=== PATIENT | female | born 1960 | race Caucasian/White ===

== ENCOUNTER → 2016-10-25 | Outpatient (CLI) | payer OTHER ==
[~2016-10-25] MED LIST: ASPCH81X PO; GADAVIST IV PRN; LEVO1TAB PO; MULT-506 PO; PRLSR20 PO
--- NOTE | 2016-10-26 14:53 | MAMMOGRAPHY REPORT ---
BREAST MRI OF BOTH BREASTS : 10/25/2016 CLINICAL HISTORY: 56 year old woman presents for screening breast MRI. BRCA posotive. COMPARISON: Comparison is made to exams dated: 01/27/2016 mammogram, 05/29/2015 breast MRI, 09/11/2014 mammogram, 08/27/2013 mammogram, 10/01/2012 localization, and 10/01/2012 specimen - [facility]. TECHNIQUE: Using a 1.5 Mary magnet and dedicated breast coil, multisequence axial images were obtai junior through the breasts. After uneventful IV administration of 8 mL of Gadavist, dynamic multiphase contrast-enhanced axial images, and sagittal postcontrast were obtained. Temporal subtraction axia l images and 3-D MIP images are provided. Everything was then reviewed on a 3-D workstation, [employer]. FINDINGS: There is mild background parenchymal enhancement, with scattered enhancing round and oval foci throughout the breasts, similar in number and distribution comparing to the prior MRI dated . There is susceptibility artifact from surgical clips in the anterior subareolar right mike st, at the site of prior excisional biopsy. There is no new suspicious enhancing mass, non-mass enh ancement, focal area of architectural distortion or suspicious kinetics. No focal skin thickening o r nipple retraction. No suspicious axillary lymphadenopathy. IMPRESSION: ACR BI-RADS CATEGORY 2: BENIGN No MRI evidence of malignancy in the breasts. Recommend continuation of annual screening mammograph y schedule an screening breast MRI. The patient will receive written notification of the results. Lexy Guzman M.D. ay/:10/25/2016 22:13:11 Plastics Spreading Machine Operator: engine assembler, [facility] letter sent: Normal 1/2 BI-RADS Code: ACR BI-RADS Category 2: Benign
== END | disposition home or self-care (01) ==
LOC: C.MRI 06:42
PROVIDERS: ATTEND Physician Assistant
DX: Z15.01 Genetic susceptibility to malignant neoplasm of breast (principal); Z15.02 Genetic susceptibility to malignant neoplasm of ovary

== ENCOUNTER → 2017-04-28 | Outpatient (CLI) | payer OTHER ==
[~2017-04-28] MED LIST changes: -GADAVIST IV PRN
--- NOTE | 2017-05-01 14:46 | MAMMOGRAPHY REPORT ---
BILATERAL DIGITAL SCREENING MAMMOGRAM TOMOSYNTHESIS WITH CAD: 04/28/2017 CLINICAL HISTORY: Routine screening. TECHNIQUE: Breast tomosynthesis in addition to standard 2D mammography was performed. Current study was also evaluated with a Computer Aided Detection (CAD) system. COMPARISON: Comparison is made to exams dated: 01/27/2016 mammogram, 09/11/2014 mammogram, 08/27/2013 ma mmogram, 08/24/2012 mammogram, 04/18/2011 mammogram, and 03/10/2010 mammogram - [facility] nter. BREAST COMPOSITION: The tissue of both breasts is heterogeneously dense, which may obscure small mas ses. FINDINGS: No suspicious masses, calcifications, or areas of architectural distortion are noted in ei ther breast. There has been no significant interval change compared to prior exams. There are stable postsurgical changes in the right subareolar breast. IMPRESSION: ACR BI-RADS CATEGORY 2: BENIGN There is no mammographic evidence of malignancy. A 1 year screening mammogram is recommended. Also r ecommend continuation with anal screening breast MRI, due October 2017. The patient will receive written notification of the results. Approximately 10% of breast cancers are not detected with mammography. A negative mammographic report should not delay biopsy if a clinically suggestive mass is present. Leatha Lawson M.D. ah/:04/28/2017 15:54:17 Food And Beverage Attendant: Huber ZAMAN(R)(M), [facility] letter sent: Normal 1/2 BI-RADS Code: ACR BI-RADS Category 2: Benign
== END | disposition home or self-care (01) ==
LOC: C.MAMM 12:17
PROVIDERS: ATTEND Obstetrics & Gynecology Gynecologic Oncology
DX: Z12.31 Encounter for screening mammogram for malignant neoplasm of breast (principal)

== ENCOUNTER 2021-03-02 17:44 | Observation (INO) ==
[2021-03-02] MEDS ORDERED: SODIUM CHLORIDE 0.9% 500 ML IV STA (18:09)
[2021-03-02 18:22] LABS: Basophils # (auto) 0.02 K/uL (0-0.2); Basophils % (auto) 0.2 %; Eosinophils # (auto) 0.26 K/uL (0-0.5); Eosinophils % (auto) 2.4 %; Hematocrit (blood only) 40.6 % (37-47); Hemoglobin 13.6 g/dL (12.0-16.0); Immature Granulocytes # (auto) 0.03 K/uL (0.00-0.02); Immature Granulocytes % (auto) 0.3 %; Lymphocytes # (auto) 2.02 K/uL (1.2-3.4); Lymphocytes % (auto) 18.3 %; Mean Corpuscular Hemoglobin 31.2 pg (25-34); Mean Corpuscular Hgb Conc 33.5 g/dL (32-36); Mean Corpuscular Volume 93.1 fL (80-100); Mean Platelet Volume 10.6 fL (7.4-10.4); Monocytes # (auto) 0.92 K/uL (0.11-0.59); Monocytes % (auto) 8.3 %; Neutrophils # (auto) 7.81 K/uL (1.4-6.5); Neutrophils % (auto) 70.5 %; Platelet Count 282 K/uL (130-400); RDW Coefficient of Variation 13.3 % (11.5-14.5); RDW Standard Deviation 45.4 fL (36.4-46.3); Red Blood Count 4.36 M/uL (4.2-5.4); White Blood Count 11.06 K/uL (4.8-10.8)
[2021-03-02 18:31] LABS: Partial Thromboplastin Time 26.6 Seconds (21.0-31.0)
[2021-03-02 19:05] LABS: Alanine Aminotransferase 47 U/L (12-78); Albumin Level 3.5 gm/dl (3.4-5.0); Aspartate Aminotransferase 28 U/L (15-37); Blood Urea Nitrogen 10 mg/dl (7-18); Calcium 9.4 mg/dl (8.5-10.1); Carbon Dioxide 26 mmol/L (21-32); Chloride 102 mmol/L (98-107); Creatinine Clr Calc Pharmacy 77.4 ml/min; Est GFR (African American) 92.2 ml/min; Est GFR (Non-African American) 79.6 ml/min; Glucose 256 mg/dl (70-99); Lipase 901 U/L (73-393); Potassium 3.7 mmol/L (3.5-5.1); Sodium 136 mmol/L (136-145)
[2021-03-02 19:10] LABS: Albumin Globulin Ratio 0.8 (0.9-2); Alkaline Phosphatase 98 U/L (45-117); Bilirubin,Total 0.5 mg/dl (0.2-1); Globulin 4.4 gm/dl (2.5-4.0); Total Protein 7.9 gm/dl (6.4-8.2); Troponin I < 0.015 ng/ml (0-0.045)
[2021-03-02] MEDS ORDERED: SODIUM CHLORIDE 0.9% 1000ML 1,000 ML IV ONE (19:26)
[2021-03-02] MEDS ORDERED: ONDANSETRON INJ 2 MG/ML 2 ML VIAL IV STA (19:26)
[2021-03-02] MEDS ORDERED: FAMOTIDINE 20MG IV PUSH 20 MG/5 ML SYR IV STA (19:26)
[2021-03-02] MEDS ORDERED: MoRPHine SULFATE 4 MG/ML 1 ML CARP\\VIAL IV PRN ×2 (19:28→23:34)
--- NOTE | 2021-03-02 19:49 | XRay Report ---
XR chest 1V portable CLINICAL HISTORY: Chest Pain COMPARISON STUDY: Chest radiograph October 10, 2014. Chest CT October 22, 2014. FINDINGS: Lung volumes are normal. Lungs are clear. There is no pneumothorax or pleural effusion. Car diac size is stable. Mediastinal contours are normal. There is no evidence for pulmonary edema. IMPRESSION: No acute cardiopulmonary findings. ACT 112: Negative or not required by law. Electronically signed by: Loy Pineda M.D. 03/02/2021 7:48 PM
[2021-03-02] MEDS ORDERED: OPTIRAY 320 125ml IV ONE (19:58)
--- NOTE | 2021-03-02 20:07 | Emergency Department Note ---
Impression & Plan Acute pancreatitis, Chest pain, Abdominal pain, epigastric ED Provider Note NAME: PRABHJOT TAYLOR AGE: 60 SEX: F : 1960 ARRIVES VIA: Walk-In INFORMANT: Patient, ED PROVIDER(S): Aric Fall DO CHIEF COMPLAINT: Chest pain HPI: The patient is a 60-year-old female who presented to the emergency department by triage for an evaluation of chest pain. The patient states that she was having chest pain over the last 3 to 4 days. She called her primary care physician today to be seen and was referred to the emergency department for further evaluation. The patient states that she has epigastric and upper chest pain. She also notices pain in the lower abdomen as well. She states that she is recently been diagnosed with hypertension and was started on an JAMAAL inhibitor. She does not drink alcohol. She notices no hematemesis or black stools. The patient states that the pain is constant. The pain is worsened with exertion. She does not notice any worsening with food. The patient has been compliant with all of her outpatient medications. The patient denies having any lower extremity swelling or pain. The patient states that she has a port site in her chest that sometimes hurts like this. 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 This is why she had a port placed. ROS: See above HPI for pertinent positives & negatives. A total of 10 systems reviewed and were otherwise negative. PAST MEDICAL HISTORY: See Below PAST SURGICAL HISTORY: See Below FAMILY HISTORY: See Below SOCIAL HISTORY: See Below HOME MEDICATIONS: See Below ALLERGIES: See Below VITALS: See Below PHYSICAL EXAMINATION: GENERAL: Patient is awake alert in no acute distress patient is resting comfortably and showing no signs of anxiety EYES: The conjunctivae are clear. The pupils are round and reactive. EARS, NOSE, MOUTH AND THROAT: The nose is without any evidence of any deformity. Mucous membranes are moist. Tongue is midline. NECK: The neck is nontender and supple. RESPIRATORY: Normal respiratory effort is noted there is no evidence of wheezing rhonchi or rales CARDIOVASCULAR: Regular rate and rhythm noted there no murmurs rubs or gallops normal S1 normal S2. GASTROINTESTINAL: The abdomen is soft and mildly distended. There is diffuse tenderness to patient. There is no guarding or rigidity. MUSCULOSKELETAL/EXTREMITIES: There is no evidence of gross deformity full range of motion is noted in the hips and shoulders. SKIN: There is no obvious evidence of any rash. There are no petechiae, pallor or cyanosis noted. NEUROLOGIC: Patient is awake alert and oriented x3 strength is symmetric patellar reflexes are 2+ bilaterally MEDICAL DECISION MAKING: The patient is a 60-year-old female who presented to the emergency department for an evaluation of chest pain and epigastric pain. The patient's cardiac work-up did not show any acute ischemic changes on EKG and her troponin was negative. I discussed the patient's laboratory and radiographic studies with her. She was found to have an elevation in her lipase. She also had chest pain and a history of cancer in the past. For this reason CT of the chest abdomen and pelvis were obtained. I discussed the findings with the patient. She was found to have signs of pancreatitis on CT as well. The patient was feeling somewhat improved on reevaluation. She was treated with pain medication in the emergency department. I discussed the patient's laboratory and radiographic studies with the on-call [facility]. They have agreed to evaluate the patient in the emergency department for further management and disposition. Triage Nursing notes reviewed. Prior medical records reviewed Vital Signs: reviewed and remarkable for no significant abnormalities Differential diagnosis: Cardiac ischemia, aortic dissection, pulmonary embolism, pneumothorax, pneumonia, pericarditis, myocarditis, esophageal rupture, GERD, cholecystitis, pancreatitis, musculoskeletal, as well as other pathologies. ER treatment provided: See below Diagnostics interpreted by me: ECG: EKG was obtained in the emergency department. My interpretation is normal sinus rhythm at 65 bpm. There is no ectopy. There was no acute ST segment abnormalities noted. This was compared to a tracing from October 222014. No significant changes were noted. Cardiac Monitoring: An order was placed for continuous cardiac monitoring. The monitor shows a rate of 60 bpm with sinus rhythm. Laboratory studies: As stated above and show below. Imaging studies: See below Consultation(s): I discussed this case with Dr. Wesley who is on-call for the [facility] group. He will evaluate the patient in the emergency department for further management and disposition. Past Med/Surg History Medical History (Updated 03/02/21 @ 22:06 by Aric Fall DO) Hypothyroidism Surgical History (Updated 03/02/21 @ 20:03 by Aric Fall DO) S/P appendectomy (09/10/11) S/P tubal ligation (09/10/11) Social History (System 11/26/19 @ 14:30 by Cathy Canales) Smoking Status: Never smoker Feels Safe at Home: Yes Allergies Allergies Allergy/AdvReac Type Severity Reaction Status Date / Time prochlorperazine Allergy Severe CAUSED Verified 03/02/21 19:49 CODE BLUE promethazine Allergy Severe MADE Verified 03/02/21 19:49 NAUSEA WORSE lorazepam Allergy Intermediate hallucinati Verified 03/02/21 19:49 ons metoclopramide Allergy Mild Unknown Verified 03/02/21 19:49 codeine Allergy Unknown Unknown Verified 03/02/21 19:49 Phenothiazines AdvReac Intermediate dystonic Verified 03/02/21 19:49 reaction meperidine AdvReac Mild GI SYMPTOMS Verified 03/02/21 19:49 Phosphoric Acid Allergy Unknown PHOSPHORATED Uncoded 03/02/21 19:49 CARBOHYDRATE Home Meds Home Medications Medication Instructions Recorded Confirmed aspirin 81 mg tablet,delayed 81 mg PO WK 03/02/21 03/02/21 release (Aspirin Low Dose) levothyroxine 150 mcg tablet 150 mcg PO DAILYBB 03/02/21 03/02/21 lisinopril 2.5 mg tablet 2.5 mg PO HS 03/02/21 03/02/21 multivitamin (Multiple Vitamins) 1 tab PO QAM 03/02/21 03/02/21 Results & Data (ED) Vital Signs Vital Signs - 24 hr 03/02/21 17:49 03/02/21 19:35 03/02/21 20:34 Temperature 37.2 C Temperature Source Temporal Artery Scan Pulse Rate 76 Pulse Rate [Apical] 58 L 58 L Pulse Rhythm Regular Pulse Strength Normal Respiratory Rate 18 18 18 Respiratory Effort / Characteristics Non-Labored Non-Labored Respiratory Depth Normal Normal Respiratory Pattern Regular Blood Pressure 197/99 H Blood Pressure [Right Arm] 188/114 H 175/86 H Blood Pressure Mean 131 Blood Pressure Mean [Right Arm] 138 115 Blood Pressure Position Sitting Pulse Oximetry 96 100 97 Oxygen Delivery Method Room Air Room Air Room Air Sepsis Recent Fever Within 48 Hours No Sepsis New/Unexplained Change in Mental Status N/A Sepsis Action Taken by Nursing No Action Required 03/02/21 21:00 Temperature Temperature Source Pulse Rate 60 Pulse Rate [Apical] Pulse Rhythm Pulse Strength Respiratory Rate 18 Respiratory Effort / Characteristics Respiratory Depth Respiratory Pattern Blood Pressure 154/79 H Blood Pressure [Right Arm] Blood Pressure Mean 104 Blood Pressure Mean [Right Arm] Blood Pressure Position Pulse Oximetry 94 Oxygen Delivery Method Sepsis Recent Fever Within 48 Hours Sepsis New/Unexplained Change in Mental Status Sepsis Action Taken by Intermediate Medications Current Medication List: was personally reviewed by me Laboratory Data Attestation: I reviewed the patient's lab results. Result diagrams: 03/02/21 18:14 03/02/21 18:14 Lab Results 03/02/21 03/02/21 03/02/21 Range/Units 18:14 18:14 18:14 WBC 11.06 H (4.8-10.8) K/uL RBC 4.36 (4.2-5.4) M/uL Hgb 13.6 (12.0-16.0) g/dL Hct 40.6 (37-47) % MCV 93.1 (80-100) fL MCH 31.2 (25-34) pg MCHC 33.5 (32-36) g/dL RDW Std Deviation 45.4 (36.4-46.3) fL RDW Coeff of Supa 13.3 (11.5-14.5) % Plt Count 282 (130-400) K/uL MPV 10.6 H (7.4-10.4) fL Immature Gran % (Auto) 0.3 % Neut % (Auto) 70.5 % Lymph % (Auto) 18.3 % Beckham % (Auto) 8.3 % Eos % (Auto) 2.4 % Baso % (Auto) 0.2 % Neut # (Auto) 7.81 H (1.4-6.5) K/uL Lymph # (Auto) 2.02 (1.2-3.4) K/uL Beckham # (Auto) 0.92 H (0.11-0.59) K/uL Eos # (Auto) 0.26 (0-0.5) K/uL Baso # (Auto) 0.02 (0-0.2) K/uL Immature Gran # (Auto) 0.03 H (0.00-0.02) K/uL APTT 26.6 (21.0-31.0) Seconds PTT Ratio 1.0 Sodium 136 (136-145) mmol/L Potassium 3.7 (3.5-5.1) mmol/L Chloride 102 (98-107) mmol/L Carbon Dioxide 26 (21-32) mmol/L Anion Gap 8.0 (3-11) BUN 10 (7-18) mg/dl Creatinine 0.80 (0.6-1.2) mg/dl Est Cr Clr Drug Dosing 77.4 ml/min Est GFR ( Amer) 92.2 ml/min Est GFR (Non-Af Amer) 79.6 ml/min BUN/Creatinine Ratio 13.0 (10-20) Glucose 256 H (70-99) mg/dl Calcium 9.4 (8.5-10.1) mg/dl Total Bilirubin 0.5 (0.2-1) mg/dl AST 28 (15-37) U/L ALT 47 (12-78) U/L Alkaline Phosphatase 98 (45-117) U/L Troponin I < 0.015 (0-0.045) ng/ml Total Protein 7.9 (6.4-8.2) gm/dl Albumin 3.5 (3.4-5.0) gm/dl Globulin 4.4 H (2.5-4.0) gm/dl Albumin/Globulin Ratio 0.8 L (0.9-2) Lipase 901 H (73-393) U/L COVID-19 Eval Order SARS-CoV-2 (PCR) (Negative) 03/02/21 03/02/21 Range/Units 19:47 19:47 WBC (4.8-10.8) K/uL RBC (4.2-5.4) M/uL Hgb (12.0-16.0) g/dL Hct (37-47) % MCV (80-100) fL MCH (25-34) pg MCHC (32-36) g/dL RDW Std Deviation (36.4-46.3) fL RDW Coeff of Supa (11.5-14.5) % Plt Count (130-400) K/uL MPV (7.4-10.4) fL Immature Gran % (Auto) % Neut % (Auto) % Lymph % (Auto) % Beckham % (Auto) % Eos % (Auto) % Baso % (Auto) % Neut # (Auto) (1.4-6.5) K/uL Lymph # (Auto) (1.2-3.4) K/uL Beckham # (Auto) (0.11-0.59) K/uL Eos # (Auto) (0-0.5) K/uL Baso # (Auto) (0-0.2) K/uL Immature Gran # (Auto) (0.00-0.02) K/uL APTT (21.0-31.0) Seconds PTT Ratio Sodium (136-145) mmol/L Potassium (3.5-5.1) mmol/L Chloride (98-107) mmol/L Carbon Dioxide (21-32) mmol/L Anion Gap (3-11) BUN (7-18) mg/dl Creatinine (0.6-1.2) mg/dl Est Cr Clr Drug Dosing ml/min Est GFR ( Amer) ml/min Est GFR (Non-Af Amer) ml/min BUN/Creatinine Ratio (10-20) Glucose (70-99) mg/dl Calcium (8.5-10.1) mg/dl Total Bilirubin (0.2-1) mg/dl AST (15-37) U/L ALT (12-78) U/L Alkaline Phosphatase (45-117) U/L Troponin I (0-0.045) ng/ml Total Protein (6.4-8.2) gm/dl Albumin (3.4-5.0) gm/dl Globulin (2.5-4.0) gm/dl Albumin/Globulin Ratio (0.9-2) Lipase (73-393) U/L COVID-19 Eval Order Covid19 at [facility] SARS-CoV-2 (PCR) NEGATIVE (Negative) Administered Medications Morphine Sulfate (Morphine Sulfate 4 Mg/Ml 1 Ml Carp\Vial) 4 mg IV Q30M PRN PRN Reason: Pain Stop: 03/16/21 19:27 Last Admin: 03/02/21 19:41 Dose: 4 mg Documented by: [id number] Discontinued Medications Sodium Chloride (Nss) 500 mls @ 999 mls/hr IV .Q31M STA Stop: 03/02/21 18:39 Last Infusion: 03/02/21 19:00 Dose: 0 mls/hr Documented by: [id number] Admin: 03/02/21 18:20 Dose: 999 mls/hr Documented by: [id number] Sodium Chloride (Nss 1000ml) 1,000 mls @ 999 mls/hr IV .Q1H1M ONE Stop: 03/02/21 20:26 Last Infusion: 03/02/21 20:40 Dose: 0 mls/hr Documented by: [id number] Admin: 03/02/21 19:40 Dose: 999 mls/hr Documented by: [id number] Famotidine (Pepcid 20mg Iv Push) 20 mg in 5 mls @ 2.5 mls/min IV NOW STA Stop: 03/02/21 19:27 Last Admin: 03/02/21 19:41 Dose: 2.5 mls/min Documented by: [id number] Ioversol (Optiray 320 125ml) 118 ml IV ONCE ONE Stop: 03/02/21 19:59 Last Admin: 03/02/21 19:59 Dose: 118 ml Documented by: [id number] Ondansetron HCl (Ondansetron Inj 2 Mg/Ml 2 Ml Vial) 4 mg IV NOW STA Stop: 03/02/21 19:27 Last Admin: 03/02/21 19:41 Dose: 4 mg Documented by: [id number] Imaging Data Radiologist's Impression: Chest X-Ray 03/02/21 18:09 XR chest 1V portable CLINICAL HISTORY: Chest Pain COMPARISON STUDY: Chest radiograph October 10, 2014. Chest CT October 22, 2014. FINDINGS: Lung volumes are normal. Lungs are clear. There is no pneumothorax or pleural effusion. Cardiac size is stable. Mediastinal contours are normal. There is no evidence for pulmonary edema. IMPRESSION: No acute cardiopulmonary findings. ACT 112: Negative or not required by law. Electronically signed by: Loy Pineda M.D. 03/02/2021 7:48 PM Abdomen/Pelvis CT 03/02/21 19:26 CT OF THE ABDOMEN AND PELVIS WITH CONTRAST CLINICAL HISTORY: Pancreatitis. COMPARISON STUDY: CT of the abdomen and pelvis December 28, 2014. TECHNIQUE: Following IV administration of 118 mL of Optiray, axial images of the abdomen and pelvis were obtained from the lung bases to the proximal femurs. Images were reviewed in the axial, sagittal, and coronal planes. IV contrast was administered without complication. Automated exposure control was utilized for the study. A dose lowering technique was utilized adhering to the principles of ALARA. FINDINGS: A hiatal hernia is noted. No pneumatosis, free air or portal venous gas is present. There is no biliary ductal dilatation status post cholecystectomy. The pancreatic head and uncinate process are edematous. There is mild peripancreatic stranding. There is no pancreatic ductal dilatation. There is no evidence for necrosis. No peripancreatic fluid collection is pr esent. There is possible hepatic steatosis. The spleen, adrenal glands and kidneys are unremarkable. Subcentimeter right renal lesion favors a cyst. There is no evidence for a bowel obstruction. Caliber and wall thickness of small and large bowel are normal. Major vasculature is patent. There is no lymphadenopathy. A 1.5 cm round density anterior to the right iliac vessels has decreased in size since CT of December 28, 2014. This is benign. IMPRESSION: 1. Edematous pancreatic head and uncinate process with mild peripancreatic stranding. The findings represent acute pancreatitis. No evidence for necrosis. No peripancreatic fluid collection. Follow-up CT in 3 months to ensure resolution is recommended. 2. No biliary ductal dilatation status post cholecystectomy. 3. Small hiatal hernia. ACT 112: Negative or not required by law. Electronically signed by: Loy Pineda M.D. 03/02/2021 8:38 PM Chest CTA 03/02/21 19:26 CT ANGIOGRAPHY OF THE CHEST, PULMONARY EMBOLUS PROTOCOL CLINICAL HISTORY: Chest pain. Nausea. Evaluate for pulmonary embolus. COMPARISON STUDY: Chest CT October 22, 2014. Chest radiograph performed earlier today. TECHNIQUE: Following IV administration of 118 mL of Optiray, helical axial images of the chest were obtained utilizing the pulmonary embolus protocol. Maximal intensity projections and sagittal and coronal reformats were viewed on an independent 3D workstation. IV contrast was administered without complication. Automated exposure control was utilized for the study. A dose lowering technique was utilized adhering to the principles of ALARA. CT DOSE: 974.61 mGy.cm FINDINGS: No pulmonary emboli are identified. There is no thoracic aortic dissection. No pericardial effusion is noted. There is a small hiatal hernia. Prominent upper mediastinal lymph nodes are unchanged since prior exam. These are likely benign. There is no pneumothorax or pleural effusion. There is no consolidation to suggest pneumonia. Mild groundglass opacities favor atelectasis. No acute fracture or suspicious lesion is identified within visualized portions of the bony thorax. The abdomen and pelvis will be reported separately. IMPRESSION: 1. No pulmonary emboli identified. 2. No acute process within the chest. 3. Small hiatal hernia. ACT 112: Negative or not required by law. Electronically signed by: Loy Pineda M.D. 03/02/2021 8:26 PM Discharge Plan Visit Data Chief Complaint: Chest Pain Stated Complaint: CHEST PAIN,NAUSEA,DIZZINESS-REF ED Provider: Aric Fall Discharge Problem: Acute pancreatitis, Chest pain, Abdominal pain, epigastric Patient Disposition: Being Evaluated by Hospitalist Forms Stand Alone Forms: My [facility] [employer] Prescriptions Prescriptions: No Action multivitamin [Multiple Vitamins] Tablet 1 tab PO QAM RF: 0 aspirin [Aspirin Low Dose] 81 mg Tablet,Delayed Release (Dr/Ec) 81 mg PO WK RF: 0 levothyroxine 150 mcg tablet 150 mcg PO DAILYBB RF: 0 lisinopril 2.5 mg tablet 2.5 mg PO HS RF: 0 Referrals Referrals: Joe Barclay, [Primary Care Provider] -
--- NOTE | 2021-03-02 20:28 | CT Scan Report ---
CT ANGIOGRAPHY OF THE CHEST, PULMONARY EMBOLUS PROTOCOL CLINICAL HISTORY: Chest pain. Nausea. Evaluate for pulmonary embolus. COMPARISON STUDY: Chest CT October 22, 2014. Chest radiograph performed earlier today. TECHNIQUE: Following IV administration of 118 mL of Optiray, helical axial images of the chest were o btained utilizing the pulmonary embolus protocol. Maximal intensity projections and sagittal and cor onal reformats were viewed on an independent 3D workstation. IV contrast was administered without co mplication. Automated exposure control was utilized for the study. A dose lowering technique was ut ilized adhering to the principles of ALARA. CT DOSE: 974.61 mGy.cm FINDINGS: No pulmonary emboli are identified. There is no thoracic aortic dissection. No pericardial effusion is noted. There is a small hiatal hernia. Prominent upper mediastinal lymph nodes are uncha nged since prior exam. These are likely benign. There is no pneumothorax or pleural effusion. There i s no consolidation to suggest pneumonia. Mild groundglass opacities favor atelectasis. No acute fract ure or suspicious lesion is identified within visualized portions of the bony thorax. The abdomen and pelvis will be reported separately. IMPRESSION: 1. No pulmonary emboli identified. 2. No acute process within the chest. 3. Small hiatal hernia. ACT 112: Negative or not required by law. Electronically signed by: Loy Pineda M.D. 03/02/2021 8:26 PM
--- NOTE | 2021-03-02 20:40 | CT Scan Report ---
CT OF THE ABDOMEN AND PELVIS WITH CONTRAST CLINICAL HISTORY: Pancreatitis. COMPARISON STUDY: CT of the abdomen and pelvis December 28, 2014. TECHNIQUE: Following IV administration of 118 mL of Optiray, axial images of the abdomen and pelvis w ere obtained from the lung bases to the proximal femurs. Images were reviewed in the axial, sagittal, and coronal planes. IV contrast was administered without complication. Automated exposure control w as utilized for the study. A dose lowering technique was utilized adhering to the principles of HAO Adkins. FINDINGS: A hiatal hernia is noted. No pneumatosis, free air or portal venous gas is present. There i s no biliary ductal dilatation status post cholecystectomy. The pancreatic head and uncinate process are edematous. There is mild peripancreatic stranding. There is no pancreatic ductal dilatation. Ther e is no evidence for necrosis. No peripancreatic fluid collection is present. There is possible hepat ic steatosis. The spleen, adrenal glands and kidneys are unremarkable. Subcentimeter right renal lesi on favors a cyst. There is no evidence for a bowel obstruction. Caliber and wall thickness of small a nd large bowel are normal. Major vasculature is patent. There is no lymphadenopathy. A 1.5 cm round d ensity anterior to the right iliac vessels has decreased in size since CT of December 28, 2014. This is b enign. IMPRESSION: 1. Edematous pancreatic head and uncinate process with mild peripancreatic stranding. The findings re present acute pancreatitis. No evidence for necrosis. No peripancreatic fluid collection. Follow-up C T in 3 months to ensure resolution is recommended. 2. No biliary ductal dilatation status post cholecystectomy. 3. Small hiatal hernia. ACT 112: Negative or not required by law. Electronically signed by: Loy Pineda M.D. 03/02/2021 8:38 PM
[2021-03-02] MEDS ORDERED: ACETAMINOPHEN 325 MG TAB PO PRN (23:34)
[2021-03-02] MEDS ORDERED: ONDANSETRON INJ 2 MG/ML 2 ML VIAL IV PRN (23:34)
[2021-03-02] MEDS ORDERED: NITROGLYCERIN SL 0.4 MG/TAB TAB SL PRN (23:34)
[2021-03-02] MEDS ORDERED: CARBOHYDRATES FOR HYPOGLYCEMIA PO PRN (23:45)
[2021-03-02] MEDS ORDERED: GLUCOSE 40% GEL 15 GM TUBE PO PRN (23:45)
[2021-03-02] MEDS ORDERED: GLUCOSE 10 TABS/TUBE PO PRN (23:45)
[2021-03-02] MEDS ORDERED: GLUCAGON FOR INJ 1 MG VIAL IM PRN (23:45)
[2021-03-02] MEDS ORDERED: DEXTROSE 50% 50 ML SYRINGE IV PRN (23:45)
--- NOTE | 2021-03-03 00:29 | History and Physical Report ---
DATE OF ADMISSION: 03/02/2021. CHIEF COMPLAINT: Chest pain and now abdominal pain. HISTORY OF PRESENT ILLNESS: This is a 60-year-old female with past medical history significant for diabetes, currently not on any medications, history of fallopian tube malignant neoplasm, history of rosacea, history of neuropathy. Presents with abdominal pain and chest pain. The patient states since Monday night, she had some abdominal discomfort and since yesterday morning, has noticed having some pain in the lower part of the chest. Then, today it started radiating into the chest and is staying in the lower part of the chest and also feeling dizzy. She had this kind of pain before and at that time it was determined it was from her A port, but it was not getting better, it was 8/10 in severity, so she came to the ER and found to be having pancreatitis with elevated lipase and also CAT scan findings. Currently, with pain medications she is feeling better. She was nauseous, but no vomiting, no diarrhea. Somewhat constipated. No blood in stools or black stools, no hematuria, no burning micturitions. No fever, no chills, no cough. Sometimes she gets feeling of tightness in the chest with pain and no headache, no blurred visions, no earache, no runny nose, no sore throat, no dysphagia. Appetite has been not great the last few days. No swelling in the legs, no rash. Currently, resting comfortably and hemodynamically stable. ALLERGIES: PROCHLORPERAZINE, PROMETHAZINE, LORAZEPAM, METOCLOPRAMIDE, CODEINE, PHENOTHIAZINES, MEPERIDINE, PHOSPHORIC ACID. PAST MEDICAL HISTORY: As mentioned above. PAST SURGICAL HISTORY: , colonoscopy, dental surgery, foot and toe surgery, hysteroscopy, endometrial ablation, tunneled catheter venous access, robotic laparoscopic removal of tube and ovary, robotic laparoscopic hysterectomy, laparoscopic cholecystectomy, ligation of the oviducts, Pap smear, appendectomy, tonsillectomy, removal of excess tissue of the abdomen, umbilical hernia repair, laparoscopy of uterus. MEDICATIONS: The patient is on aspirin 81 mg p.o. daily, levothyroxine 150 mcg p.o. daily, lisinopril 2.5 mg p.o. at bedtime, multivitamin 1 tablet p.o. a.m. FAMILY HISTORY: Significant for father had prostate cancer, [place], hypertension; mother had breast cancer; maternal grandmother had breast cancer; sister has fallopian tube cancer; second cousin has ovarian cancer. SOCIAL HISTORY: , no smoking. Alcohol occasional. No drug use. REVIEW OF SYSTEMS: As per HPI. Rest of the review of systems is negative. PHYSICAL EXAMINATION: GENERAL: The patient is of moderate build, not in acute distress. VITAL SIGNS: Temperature 37.2, pulse 63, respiratory rate 21, blood pressure 166/98, oxygen 99% on room air. HEENT: Pupils equal, round and reactive to light. Oral mucosa moist. NECK: No JVD, no neck masses. CARDIOVASCULAR: S1 and S2 heard. Regular rate and rhythm. No murmur, no gallop. RESPIRATORY: Normal AP diameter. No accessory muscle use. No wheezing, no crackles. ABDOMEN: Soft, bowel sounds present, nontender, no distention. CENTRAL NERVOUS SYSTEM: Cranial nerves II-XII grossly intact, nonfocal. EXTREMITIES: No edema, no erythema. LABORATORY DATA: WBC 11.06, hemoglobin 13.6, hematocrit 40.6, platelets 282, APTT 26.6, PTT 1. Sodium 136, potassium 3.7, chloride 102, bicarbonate 26, BUN 10, creatinine 0.8, serum glucose 256, calcium 9.4, total bilirubin 0.5, AST 28, ALT 47, alkaline phosphatase 98. Troponin I less than 0.015. Lipase is 901. SARS-CoV-2 PCR negative. IMAGING DATA: CTA of the chest, no PE, no acute process within the chest. Small hiatal hernia. CT of the abdomen and pelvis shows edematous pancreatic head and uncinate process with mild peripancreatic stranding. These findings represent acute pancreatitis. No evidence of necrosis. No peripancreatic fluid collection. Followup CT in three months to ensure resolution is recommended. No biliary ductal dilatation, status post cholecystectomies. Small hiatal hernia. Chest x-ray, no acute cardiopulmonary findings. EKG: Normal sinus rhythm, rate of 65, no acute ST changes seen. ASSESSMENT AND PLAN: This is a 60-year-old female who presents with chest pain, abdominal pain. 1. Chest pain and abdominal pain, most likely secondary to acute pancreatitis: The patient says he was started on lisinopril 3 months ago, which will be held.. History of cholecystectomy. Etiology unclear. We will start an aggressive IV fluids, saline at 200 mL per hour, IV morphine p.r.n., IV antiemetics. Keep her n.p.o. and consult GI in the a.m. for further recommendation. Monitor in the [employer] tele. 2. Questionable chest pain, most likely from pancreatitis: Initial EKG and troponin negative. Follow serial enzymes and echocardiogram. 3. Hypertension: On low-dose lisinopril, which will hold for now. 4. Hypothyroidism: Continue Synthroid. 5. History of diabetes: Currently not taking any medications. Will place on insulin sliding scale. Follow HbA1c levels. 6. 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 Status post chemo. Currently in remission. Follow up with hem/onc. 7. Deep venous thrombosis prophylaxis: Lovenox. DISPOSITION: Closely monitor in the [employer] tele. PT/OT prior to discharge. Social service to help with discharge planning. Job ID: [id number] MTDD
[2021-03-03] MEDS: LACTATED RINGER'S 1,000 ML IV SCH ×5 (00:42→19:02)
[2021-03-03] MEDS: ENOXAPARIN INJ 40 MG/0.4 ML SYR SQ SCH ×2 (01:04→20:42)
[2021-03-03] MEDS: INSULIN ASPART 100 UNITS/ML 3 ML PEN SC SCH ×5 (01:15→20:50)
[2021-03-03 05:38] LABS: Basophils # (auto) 0.02 K/uL (0-0.2); Basophils % (auto) 0.2 %; Eosinophils # (auto) 0.24 K/uL (0-0.5); Eosinophils % (auto) 2.8 %; Hematocrit (blood only) 37.2 % (37-47); Hemoglobin 11.9 g/dL (12.0-16.0); Immature Granulocytes # (auto) 0.02 K/uL (0.00-0.02); Immature Granulocytes % (auto) 0.2 %; Lymphocytes # (auto) 1.97 K/uL (1.2-3.4); Mean Corpuscular Hemoglobin 30.4 pg (25-34); Mean Corpuscular Volume 94.9 fL (80-100); Mean Platelet Volume 10.3 fL (7.4-10.4); Monocytes # (auto) 0.74 K/uL (0.11-0.59); Monocytes % (auto) 8.6 %; Neutrophils # (auto) 5.58 K/uL (1.4-6.5); Neutrophils % (auto) 65.2 %; Platelet Count 253 K/uL (130-400); RDW Coefficient of Variation 13.5 % (11.5-14.5); RDW Standard Deviation 46.8 fL (36.4-46.3); Red Blood Count 3.92 M/uL (4.2-5.4); White Blood Count 8.57 K/uL (4.8-10.8)
[2021-03-03 06:12] LABS: BUN Creatinine Ratio 10.4 (10-20); Calcium 8.8 mg/dl (8.5-10.1); Creatinine Clr Calc Pharmacy 100.5 ml/min; Est GFR (African American) 112.8 ml/min; Est GFR (Non-African American) 97.3 ml/min
[2021-03-03 07:25] LABS: Estimated Average Glucose 171 mg/dl; Hemoglobin A1C 7.6 % (4.5-5.6)
--- NOTE | 2021-03-03 08:05 | Electrocardiogram Report ---
Test Reason : Blood Pressure : / mmHG Vent. Rate : 065 BPM Atrial Rate : 065 BPM P-R Int : 146 ms QRS Dur : 072 ms QT Int : 380 ms P-R-T Axes : 049 023 033 degrees QTc Int : 395 ms Normal sinus rhythm Normal ECG When compared with ECG of 22-OCT-2014 10:58, QT has shortened Confirmed by Nemesio Handley ([id number]) on 03/03/2021 8:04:42 AM Referred By: Joe Barclay Confirmed By:Neemsio Handley
--- NOTE | 2021-03-03 08:05 | Electrocardiogram Report ---
Test Reason : Blood Pressure : / mmHG Vent. Rate : 059 BPM Atrial Rate : 059 BPM P-R Int : 150 ms QRS Dur : 074 ms QT Int : 402 ms P-R-T Axes : 058 044 032 degrees QTc Int : 397 ms Sinus bradycardia Otherwise normal ECG When compared with ECG of 02-MAR-2021 17:59, No significant change was found Confirmed by Nemesio Handley ([id number]) on 03/03/2021 8:04:53 AM Referred By: Joe Barclay Confirmed By:Nemesio Handley
--- NOTE | 2021-03-03 13:08 | Gastrointestinal Consultation ---
Date of Consultation March 03, 2021 Assessment & Plan (1) Acute pancreatitis: This is a 60-year-old female admitted with pancreatitis. Labs and imagin reviewed. She is already feeling improved with analgesia. She has not required any pain medicine since last evening. She is tolerating ice chips at present. Abdominal pain is much improved, almost gone, no nausea. Abdomen soft on exam. Etiology for pancreatitis unclear, she is status post cholecystectomy, no evidence for biliary stone, no tobacco or significant alcohol use, no history of hypertriglyceridemia perhaps medications have contributed to this, recently was started on Jardiance and lisinopril. Jardiance has been stopped. - Would advance diet to clear liquids -> low-fat diet as tolerated - Would use analgesia as needed - Would avoid ETOH - Encourage ambulation as able - Patient would benefit from outpatient EUS in 4 to 6 weeks to evaluate the pancreas for follow-up, our office will arrange this Thank you for allowing us to participate in the care of this patient. Please call with any acute changes, questions or concerns. Please see addendum below with additional recommendation from my supervising physician. Supervising Physician Co-Signing Physician Notes I have personally seen and examined the patient with Cathy Spaulding PA-C on 03/03/21. Her note reflects my exam and findings. I agree with her impression and plan. Abdominal pain improved already. No obvious cause of pancreatitis. advance diet as tolerates. Parrish Khoury M.D. History of Present Illness Reason for Consultation: pancreatitis Requesting Physician: Dr. Wesley Attending Physician: Temo Burnham MD History of Present Illness This is a 60-year-old female with PMhx DM, history of fallopian tube malignant neoplasm, admitted yesterday after presenting with epigastric and chest discomfort symptoms started over the weekend and worsen, to the point where it was painful to take a deep breath. On arrival to the ER, she was found to have elevated lipase of 900, with normal LFTs, WBC 11. CTAP suggestive of pancreatitis. Currently feeling much better after analgesia. She is even tolerating some ice chips. She has no leukocytosis or significant anemia on lab work. She is afebrile, not tachycardic She is status post cholecystectomy in 2014. She has very occasional alcohol, maybe 1 beer per month. Does not use tobacco products. Several months ago, she was started on Jardiance and lisinopril, as well as turmeric. 1 month ago she stopped Jardiance due to yeast infection; she was treated at that time with Difl ucan for 1 dose, as well as topical clotrimazole cream. No family history of pancreatitis or pancreas problems. No prior history of pancreatitis. Triglycerides were 165 in June of this year. Denies nausea vomiting, hematemesis, melena or hematochezia, no fevers or chills, chest pain or shortness of breath, jaundice, weight loss, leg edema. Allergies Allergy/AdvReac Type Severity Reaction Status Date / Time prochlorperazine Allergy Severe CAUSED Verified 03/02/21 19:49 CODE BLUE promethazine Allergy Severe MADE Verified 03/02/21 19:49 NAUSEA WORSE lorazepam Allergy Intermediate hallucinati Verified 03/02/21 19:49 ons metoclopramide Allergy Mild Unknown Verified 03/02/21 19:49 codeine Allergy Unknown Unknown Verified 03/02/21 19:49 Phenothiazines AdvReac Intermediate dystonic Verified 03/02/21 19:49 reaction meperidine AdvReac Mild GI SYMPTOMS Verified 03/02/21 19:49 Phosphoric Acid Allergy Unknown PHOSPHORATED Uncoded 03/02/21 19:49 CARBOHYDRATE Home Medications Medication Instructions Recorded Confirmed Type aspirin 81 mg tablet,delayed 81 mg PO WK 03/02/21 03/02/21 History release (Aspirin Low Dose) levothyroxine 150 mcg tablet 150 mcg PO DAILYBB 03/02/21 03/02/21 History lisinopril 2.5 mg tablet 2.5 mg PO HS 03/02/21 03/02/21 History multivitamin (Multiple Vitamins) 1 tab PO QAM 03/02/21 03/02/21 History Patient History Medical History (Updated 03/02/21 @ 22:06 by Aric Fall DO) Hypothyroidism Surgical History (Updated 03/02/21 @ 20:03 by Aric Fall DO) S/P appendectomy (09/10/11) S/P tubal ligation (09/10/11) Social History (System 11/26/19 @ 14:30 by Cathy Canales) Smoking Status: Never smoker Hx Alcohol Use: No Hx Substance Use: No Preferred Language: Nepali Communication Ability: Effective Engineering Scientist Required: No Beliefs That Will Affect Care: None Current Living Situation: Spouse Feels Safe at Home: Yes Safety Concerns: Feels Safe At This Time Assistive Devices: None Review of Systems Review of Systems: A complete review of systems was performed and negative except as noted in HPI Physical Exam Constitutional: WD/WN, vitals as above Eyes: Sclera anicteric Neck: trachea midline, no thyromegaly Respiratory: normal respiratory effort, lungs clear to auscultation Cardiovascular: RRR, no murmur, no edema Gastrointestinal (Abdomen): Bowel sounds x4 quadrants, abdomen is soft, very mild tenderness to the epigastrium, no rebound or guarding, nondistended Skin: no rashes, warm and dry Results & Data ([facility]) Vital Signs (Past 12 Hours) Vital Signs Temp Pulse Pulse Resp BP Pulse Ox 03/03/21 11:14 36.6 C 57 L 18 156/72 H 98 03/03/21 07:52 64 03/03/21 07:40 36.8 C 86 18 155/96 H 94 03/03/21 04:00 36.6 C 57 L 18 150/79 H 97 Laboratory Results 03/03/21 03/03/21 03/03/21 Range/Units 11:42 11:22 06:49 WBC (4.8-10.8) K/uL RBC (4.2-5.4) M/uL Hgb (12.0-16.0) g/dL Hct (37-47) % MCV (80-100) fL MCH (25-34) pg MCHC (32-36) g/dL RDW Std Deviation (36.4-46.3) fL RDW Coeff of Supa (11.5-14.5) % Plt Count (130-400) K/uL MPV (7.4-10.4) fL Immature Gran % (Auto) % Neut % (Auto) % Lymph % (Auto) % [place] % (Auto) % Eos % (Auto) % Baso % (Auto) % Neut # (Auto) (1.4-6.5) K/uL Lymph # (Auto) (1.2-3.4) K/uL [place] # (Auto) (0.11-0.59) K/uL Eos # (Auto) (0-0.5) K/uL Baso # (Auto) (0-0.2) K/uL Immature Gran # (Auto) (0.00-0.02) K/uL APTT (21.0-31.0) Seconds PTT Ratio Sodium (136-145) mmol/L Potassium (3.5-5.1) mmol/L Chloride (98-107) mmol/L Carbon Dioxide (21-32) mmol/L Anion Gap (3-11) BUN (7-18) mg/dl Creatinine (0.6-1.2) mg/dl Est Cr Clr Drug Dosing ml/min Est GFR ( Amer) ml/min Est GFR (Non-Af Amer) ml/min BUN/Creatinine Ratio (10-20) Glucose (70-99) mg/dl POC Glucose 127 H 164 H (70-99) mg/dl Estimat Average Glucose mg/dl Hemoglobin A1c (4.5-5.6) % Calcium (8.5-10.1) mg/dl Magnesium (1.8-2.4) mg/dl Total Bilirubin (0.2-1) mg/dl AST (15-37) U/L ALT (12-78) U/L Alkaline Phosphatase (45-117) U/L Troponin I < 0.015 (0-0.045) ng/ml Total Protein (6.4-8.2) gm/dl Albumin (3.4-5.0) gm/dl Globulin (2.5-4.0) gm/dl Albumin/Globulin Ratio (0.9-2) Lipase (73-393) U/L COVID-19 Eval Order SARS-CoV-2 (PCR) (Negative) 03/03/21 03/03/21 03/03/21 Range/Units 05:23 05:23 05:23 WBC 8.57 (4.8-10.8) K/uL RBC 3.92 L (4.2-5.4) M/uL Hgb 11.9 L (12.0-16.0) g/dL Hct 37.2 (37-47) % MCV 94.9 (80-100) fL MCH 30.4 (25-34) pg MCHC 32.0 (32-36) g/dL RDW Std Deviation 46.8 H (36.4-46.3) fL RDW Coeff of Supa 13.5 (11.5-14.5) % Plt Count 253 (130-400) K/uL MPV 10.3 (7.4-10.4) fL Immature Gran % (Auto) 0.2 % Neut % (Auto) 65.2 % Lymph % (Auto) 23.0 % [place] % (Auto) 8.6 % Eos % (Auto) 2.8 % Baso % (Auto) 0.2 % Neut # (Auto) 5.58 (1.4-6.5) K/uL Lymph # (Auto) 1.97 (1.2-3.4) K/uL [place] # (Auto) 0.74 H (0.11-0.59) K/uL Eos # (Auto) 0.24 (0-0.5) K/uL Baso # (Auto) 0.02 (0-0.2) K/uL Immature Gran # (Auto) 0.02 (0.00-0.02) K/uL APTT (21.0-31.0) Seconds PTT Ratio Sodium 135 L (136-145) mmol/L Potassium 4.0 (3.5-5.1) mmol/L Chloride 108 H (98-107) mmol/L Carbon Dioxide 26 (21-32) mmol/L Anion Gap 1.0 L (3-11) BUN 6 L (7-18) mg/dl Creatinine 0.62 (0.6-1.2) mg/dl Est Cr Clr Drug Dosing 100.5 ml/min Est GFR ( Amer) 112.8 ml/min Est GFR (Non-Af Amer) 97.3 ml/min BUN/Creatinine Ratio 10.4 (10-20) Glucose 162 H (70-99) mg/dl POC Glucose (70-99) mg/dl Estimat Average Glucose 171 mg/dl Hemoglobin A1c 7.6 H (4.5-5.6) % Calcium 8.8 (8.5-10.1) mg/dl Magnesium 2.0 (1.8-2.4) mg/dl Total Bilirubin (0.2-1) mg/dl AST (15-37) U/L ALT (12-78) U/L Alkaline Phosphatase (45-117) U/L Troponin I (0-0.045) ng/ml Total Protein (6.4-8.2) gm/dl Albumin (3.4-5.0) gm/dl Globulin (2.5-4.0) gm/dl Albumin/Globulin Ratio (0.9-2) Lipase (73-393) U/L COVID-19 Eval Order SARS-CoV-2 (PCR) (Negative) 03/03/21 03/03/21 03/02/21 Range/Units 05:23 00:39 19:47 WBC (4.8-10.8) K/uL RBC (4.2-5.4) M/uL Hgb (12.0-16.0) g/dL Hct (37-47) % MCV (80-100) fL MCH (25-34) pg MCHC (32-36) g/dL RDW Std Deviation (36.4-46.3) fL RDW Coeff of Supa (11.5-14.5) % Plt Count (130-400) K/uL MPV (7.4-10.4) fL Immature Gran % (Auto) % Neut % (Auto) % Lymph % (Auto) % [place] % (Auto) % Eos % (Auto) % Baso % (Auto) % Neut # (Auto) (1.4-6.5) K/uL Lymph # (Auto) (1.2-3.4) K/uL [place] # (Auto) (0.11-0.59) K/uL Eos # (Auto) (0-0.5) K/uL Baso # (Auto) (0-0.2) K/uL Immature Gran # (Auto) (0.00-0.02) K/uL APTT (21.0-31.0) Seconds PTT Ratio Sodium (136-145) mmol/L Potassium (3.5-5.1) mmol/L Chloride (98-107) mmol/L Carbon Dioxide (21-32) mmol/L Anion Gap (3-11) BUN (7-18) mg/dl Creatinine (0.6-1.2) mg/dl Est Cr Clr Drug Dosing ml/min Est GFR ( Amer) ml/min Est GFR (Non-Af Amer) ml/min BUN/Creatinine Ratio (10-20) Glucose (70-99) mg/dl POC Glucose 175 H (70-99) mg/dl Estimat Average Glucose mg/dl Hemoglobin A1c (4.5-5.6) % Calcium (8.5-10.1) mg/dl Magnesium (1.8-2.4) mg/dl Total Bilirubin (0.2-1) mg/dl AST (15-37) U/L ALT (12-78) U/L Alkaline Phosphatase (45-117) U/L Troponin I < 0.015 (0-0.045) ng/ml Total Protein (6.4-8.2) gm/dl Albumin (3.4-5.0) gm/dl Globulin (2.5-4.0) gm/dl Albumin/Globulin Ratio (0.9-2) Lipase (73-393) U/L COVID-19 Eval Order SARS-CoV-2 (PCR) NEGATIVE (Negative) 03/02/21 03/02/21 03/02/21 Range/Units 19:47 18:14 18:14 WBC (4.8-10.8) K/uL RBC (4.2-5.4) M/uL Hgb (12.0-16.0) g/dL Hct (37-47) % MCV (80-100) fL MCH (25-34) pg MCHC (32-36) g/dL RDW Std Deviation (36.4-46.3) fL RDW Coeff of Supa (11.5-14.5) % Plt Count (130-400) K/uL MPV (7.4-10.4) fL Immature Gran % (Auto) % Neut % (Auto) % Lymph % (Auto) % [place] % (Auto) % Eos % (Auto) % Baso % (Auto) % Neut # (Auto) (1.4-6.5) K/uL Lymph # (Auto) (1.2-3.4) K/uL [place] # (Auto) (0.11-0.59) K/uL Eos # (Auto) (0-0.5) K/uL Baso # (Auto) (0-0.2) K/uL Immature Gran # (Auto) (0.00-0.02) K/uL APTT 26.6 (21.0-31.0) Seconds PTT Ratio 1.0 Sodium 136 (136-145) mmol/L Potassium 3.7 (3.5-5.1) mmol/L Chloride 102 (98-107) mmol/L Carbon Dioxide 26 (21-32) mmol/L Anion Gap 8.0 (3-11) BUN 10 (7-18) mg/dl Creatinine 0.80 (0.6-1.2) mg/dl Est Cr Clr Drug Dosing 77.4 ml/min Est GFR ( Amer) 92.2 ml/min Est GFR (Non-Af Amer) 79.6 ml/min BUN/Creatinine Ratio 13.0 (10-20) Glucose 256 H (70-99) mg/dl POC Glucose (70-99) mg/dl Estimat Average Glucose mg/dl Hemoglobin A1c (4.5-5.6) % Calcium 9.4 (8.5-10.1) mg/dl Magnesium (1.8-2.4) mg/dl Total Bilirubin 0.5 (0.2-1) mg/dl AST 28 (15-37) U/L ALT 47 (12-78) U/L Alkaline Phosphatase 98 (45-117) U/L Troponin I < 0.015 (0-0.045) ng/ml Total Protein 7.9 (6.4-8.2) gm/dl Albumin 3.5 (3.4-5.0) gm/dl Globulin 4.4 H (2.5-4.0) gm/dl Albumin/Globulin Ratio 0.8 L (0.9-2) Lipase 901 H (73-393) U/L COVID-19 Eval Order Covid19 at [facility] SARS-CoV-2 (PCR) (Negative) 03/02/21 Range/Units 18:14 WBC 11.06 H (4.8-10.8) K/uL RBC 4.36 (4.2-5.4) M/uL Hgb 13.6 (12.0-16.0) g/dL Hct 40.6 (37-47) % MCV 93.1 (80-100) fL MCH 31.2 (25-34) pg MCHC 33.5 (32-36) g/dL RDW Std Deviation 45.4 (36.4-46.3) fL RDW Coeff of Supa 13.3 (11.5-14.5) % Plt Count 282 (130-400) K/uL MPV 10.6 H (7.4-10.4) fL Immature Gran % (Auto) 0.3 % Neut % (Auto) 70.5 % Lymph % (Auto) 18.3 % [place] % (Auto) 8.3 % Eos % (Auto) 2.4 % Baso % (Auto) 0.2 % Neut # (Auto) 7.81 H (1.4-6.5) K/uL Lymph # (Auto) 2.02 (1.2-3.4) K/uL [place] # (Auto) 0.92 H (0.11-0.59) K/uL Eos # (Auto) 0.26 (0-0.5) K/uL Baso # (Auto) 0.02 (0-0.2) K/uL Immature Gran # (Auto) 0.03 H (0.00-0.02) K/uL APTT (21.0-31.0) Seconds PTT Ratio Sodium (136-145) mmol/L Potassium (3.5-5.1) mmol/L Chloride (98-107) mmol/L Carbon Dioxide (21-32) mmol/L Anion Gap (3-11) BUN (7-18) mg/dl Creatinine (0.6-1.2) mg/dl Est Cr Clr Drug Dosing ml/min Est GFR ( Amer) ml/min Est GFR (Non-Af Amer) ml/min BUN/Creatinine Ratio (10-20) Glucose (70-99) mg/dl POC Glucose (70-99) mg/dl Estimat Average Glucose mg/dl Hemoglobin A1c (4.5-5.6) % Calcium (8.5-10.1) mg/dl Magnesium (1.8-2.4) mg/dl Total Bilirubin (0.2-1) mg/dl AST (15-37) U/L ALT (12-78) U/L Alkaline Phosphatase (45-117) U/L Troponin I (0-0.045) ng/ml Total Protein (6.4-8.2) gm/dl Albumin (3.4-5.0) gm/dl Globulin (2.5-4.0) gm/dl Albumin/Globulin Ratio (0.9-2) Lipase (73-393) U/L COVID-19 Eval Order SARS-CoV-2 (PCR) (Negative) Diagnostic Findings CTAP: FINDINGS: A hiatal hernia is noted. No pneumatosis, free air or portal venous gas is present. There is no biliary ductal dilatation status post cholecystectomy. The pancreatic head and uncinate process are edematous. There is mild peripancreatic stranding. There is no pancreatic ductal dilatation. There is no evidence for necrosis. No peripancreatic fluid collection is present. There is possible hepatic steatosis. The spleen, adrenal glands and kidneys are unremarkable. Subcentimeter right renal lesion favors a cyst. There is no evidence for a bowel obstruction. Caliber and wall thickness of small and large bowel are normal. Major vasculature is patent. There is no lymphadenopathy. A 1.5 cm round density anterior to the right iliac vessels has decreased in size since CT of December 28, 2014. This is benign. IMPRESSION: 1. Edematous pancreatic head and uncinate process with mild peripancreatic stranding. The findings represent acute pancreatitis. No evidence for necrosis. No peripancreatic fluid collection. Follow-up CT in 3 months to ensure resolution is recommended. 2. No biliary ductal dilatation status post cholecystectomy. 3. Small hiatal hernia. CTA chest: FINDINGS: No pulmonary emboli are identified. There is no thoracic aortic dissection. No pericardial effusion is noted. There is a small hiatal hernia. Prominent upper mediastinal lymph nodes are unchanged since prior exam. These are likely benign. There is no pneumothorax or pleural effusion. There is no co nsolidation to suggest pneumonia. Mild groundglass opacities favor atelectasis. No acute fracture or suspicious lesion is identified within visualized portions of the bony thorax. The abdomen and pelvis will be reported separately. IMPRESSION: 1. No pulmonary emboli identified. 2. No acute process within the chest. 3. Small hiatal hernia. (1) Acute pancreatitis Acute pancreatitis complication: unspecified Pancreatitis type: unspecified pancreatitis type Qualified Code(s): K85.90 - Acute pancreatitis without necrosis or infection, unspecified
--- NOTE | 2021-03-03 20:41 | Hospitalist Progress Note ---
Date of Service March 03, 2021 Assessment & Plan (1) Acute pancreatitis: Plan: #. Pancreatitis Labs and imaging 11 clinical findings suggestive of acute pancreatitis History of cholecystectomy Patient already improving with regard to her belly pain, GI consulted, put her on liquid diet, continue to monitor. #. Concern for chest pain: Initial EKG and troponin negative. Troponin trends negative. No chest pain at bedside. #. Hypothyroidism/DM: Hold oral DM meds, continue with sliding scale insulin, continue with# home Synthroid #. DVT prophylaxis: Lovenox Admission and Anticipated Discharge Date Admission Date: March 02, 2021 Subjective Patient was lying in bed, on room air, NAD, no issues overnight. Patient reports significant improvement in her belly pain. Denies fever/headache/chills/other review of symptoms. Physical Exam Physical Exam: GENERAL: Alert and oriented x3. NAD, on RA. HEENT: No pallor, no icterus. Pupils equal, round and reactive to light. Oral mucosa moist. NECK: No JVD, no neck masses. HEART: S1 and S2 heard. Regular rate and rhythm. No murmur, no gallop. RESPIRATORY SYSTEM: Normal AP diameter. No accessory muscle use. No wheezing, no crackles. ABDOMEN: Soft, bowel sounds present, discomfort in the epigastric region, no distention. CENTRAL NERVOUS SYSTEM: Alert and oriented x3. No facial droop. Speech is clear. Obeys simple commands. Moves extremities. EXTREMITIES: No edema, no erythema seen. Results & Data Results & Data ([facility]) Vital Signs (Past 12 Hours) Vital Signs Temp Pulse Pulse Resp BP Pulse Ox 03/03/21 16:09 36.8 C 59 L 18 164/72 H 97 03/03/21 15:11 57 L 03/03/21 11:14 36.6 C 57 L 18 156/72 H 98 (1) Acute pancreatitis Acute pancreatitis complication: unspecified Pancreatitis type: unspecified pancreatitis type Qualified Code(s): K85.90 - Acute pancreatitis without necrosis or infection, unspecified
[2021-03-04] MEDS: LACTATED RINGER'S 1,000 ML IV SCH ×2 (00:26→05:35)
[2021-03-04 06:25] LABS: Hematocrit (blood only) 37.2 % (37-47); Hemoglobin 11.8 g/dL (12.0-16.0); Mean Corpuscular Hemoglobin 29.7 pg (25-34); Mean Corpuscular Hgb Conc 31.7 g/dL (32-36); Mean Corpuscular Volume 93.7 fL (80-100); Mean Platelet Volume 10.3 fL (7.4-10.4); Platelet Count 255 K/uL (130-400); RDW Coefficient of Variation 13.1 % (11.5-14.5); Red Blood Count 3.97 M/uL (4.2-5.4); White Blood Count 5.79 K/uL (4.8-10.8)
[2021-03-04 07:12] LABS: BUN Creatinine Ratio 9.5 (10-20); Calcium 9.2 mg/dl (8.5-10.1); Creatinine Clr Calc Pharmacy 93.7 ml/min; Est GFR (African American) 110.5 ml/min; Est GFR (Non-African American) 95.3 ml/min; Magnesium 1.9 mg/dl (1.8-2.4); Potassium 3.9 mmol/L (3.5-5.1)
[2021-03-04] MEDS: INSULIN ASPART 100 UNITS/ML 3 ML PEN SC SCH ×2 (07:52→11:41)
[2021-03-04] MEDS ORDERED: amLODIPine BESYLATE 5 MG TAB PO SCH (09:30)
--- NOTE | 2021-03-04 13:01 | Gastroenterology Progress Note ---
Date of Service March 04, 2021 Assessment & Plan (1) Acute pancreatitis: Plan: This is a 60-year-old female admitted with pancreatitis. Labs and imaging reviewed. Symptoms have largely resolved. Abdomen soft on exam. Etiology for pancreatitis unclear, she is status post cholecystectomy, no evidence for biliary stone, no tobacco or significant alcohol use, no history of hypertriglyceridemia perhaps medications have contributed to this, recently was started on Jardiance and lisinopril. Jardiance has been stopped. ? due to meds. - Recommend advance to low-fat diet as tolerated - Would avoid ETOH - Encourage ambulation as able - No GI contraindication for discharge - Patient would benefit from outpatient EUS in 4 to 6 weeks to evaluate the pancreas anatomy for follow-up, our office will arrange this - GI will sign off, please call with questions Thank you for allowing us to participate in the care of this patient. Please call with any acute changes, questions or concerns. Please see addendum below with additional recommendation from my supervising physician. Admission and Anticipated Discharge Date Admission Date: March 02, 2021 Supervising Physician Co-Signing Physician Notes I have personally seen and examined the patient with Cathy Spaulding PA-C. Her note reflects my exam and findings. I agree with her impression and plan. Out patient EUS. Parrish Khoury M.D. Subjective Patient seen and examined, chart reviewed. No acute events overnight. Patient feeling well, tolerating her diet. States she feels well enough to go home. Not requiring analgesia No abdominal pain, nausea vomiting, hematemesis, melena or hematochezia, fevers or chills, chest pain or shortness of breath Review of Systems Review of Systems: A complete review of systems was performed and negative except as noted in HPI Physical Exam Constitutional: WD/WN, vitals as above Neck: trachea midline, no thyromegaly Respiratory: normal respiratory effort, lungs clear to auscultation Cardiovascular: RRR, no murmur, no edema Skin: no rashes, warm and dry Results & Data ([facility]) Vital Signs (Past 12 Hours) Vital Signs Temp Pulse Pulse Pulse Resp BP Pulse Ox 03/04/21 11:58 36.7 C 62 55 L 18 148/80 H 97 03/04/21 11:53 148/80 H 03/04/21 11:28 36.7 C 55 L 18 172/90 H 97 03/04/21 08:06 162/68 H 03/04/21 07:52 36.7 C 59 L 19 99 03/04/21 07:20 54 L 03/04/21 04:07 36.6 C 55 L 18 168/84 H 98 Diagnostic Findings 03/04/21 03/04/21 03/04/21 Range/Units 11:36 07:46 06:06 WBC (4.8-10.8) K/uL RBC (4.2-5.4) M/uL Hgb (12.0-16.0) g/dL Hct (37-47) % MCV (80-100) fL MCH (25-34) pg MCHC (32-36) g/dL RDW Std Deviation (36.4-46.3) fL RDW Coeff of Supa (11.5-14.5) % Plt Count (130-400) K/uL MPV (7.4-10.4) fL Sodium 140 (136-145) mmol/L Potassium 3.9 (3.5-5.1) mmol/L Chloride 106 (98-107) mmol/L Carbon Dioxide 28 (21-32) mmol/L Anion Gap 6.0 (3-11) BUN 6 L (7-18) mg/dl Creatinine 0.66 (0.6-1.2) mg/dl Est Cr Clr Drug Dosing 93.7 ml/min Est GFR ( Amer) 110.5 ml/min Est GFR (Non-Af Amer) 95.3 ml/min BUN/Creatinine Ratio 9.5 L (10-20) Glucose 148 H (70-99) mg/dl POC Glucose 145 H 123 H (70-99) mg/dl Calcium 9.2 (8.5-10.1) mg/dl Magnesium 1.9 (1.8-2.4) mg/dl 03/04/21 03/04/21 03/03/21 Range/Units 06:06 04:19 20:41 WBC 5.79 (4.8-10.8) K/uL RBC 3.97 L (4.2-5.4) M/uL Hgb 11.8 L (12.0-16.0) g/dL Hct 37.2 (37-47) % MCV 93.7 (80-100) fL MCH 29.7 (25-34) pg MCHC 31.7 L (32-36) g/dL RDW Std Deviation 45.0 (36.4-46.3) fL RDW Coeff of Supa 13.1 (11.5-14.5) % Plt Count 255 (130-400) K/uL MPV 10.3 (7.4-10.4) fL Sodium (136-145) mmol/L Potassium (3.5-5.1) mmol/L Chloride (98-107) mmol/L Carbon Dioxide (21-32) mmol/L Anion Gap (3-11) BUN (7-18) mg/dl Creatinine (0.6-1.2) mg/dl Est Cr Clr Drug Dosing ml/min Est GFR ( Amer) ml/min Est GFR (Non-Af Amer) ml/min BUN/Creatinine Ratio (10-20) Glucose (70-99) mg/dl POC Glucose 131 H 137 H (70-99) mg/dl Calcium (8.5-10.1) mg/dl Magnesium (1.8-2.4) mg/dl 03/03/21 Range/Units 16:44 WBC (4.8-10.8) K/uL RBC (4.2-5.4) M/uL Hgb (12.0-16.0) g/dL Hct (37-47) % MCV (80-100) fL MCH (25-34) pg MCHC (32-36) g/dL RDW Std Deviation (36.4-46.3) fL RDW Coeff of Supa (11.5-14.5) % Plt Count (130-400) K/uL MPV (7.4-10.4) fL Sodium (136-145) mmol/L Potassium (3.5-5.1) mmol/L Chloride (98-107) mmol/L Carbon Dioxide (21-32) mmol/L Anion Gap (3-11) BUN (7-18) mg/dl Creatinine (0.6-1.2) mg/dl Est Cr Clr Drug Dosing ml/min Est GFR ( Amer) ml/min Est GFR (Non-Af Amer) ml/min BUN/Creatinine Ratio (10-20) Glucose (70-99) mg/dl POC Glucose 156 H (70-99) mg/dl Calcium (8.5-10.1) mg/dl Magnesium (1.8-2.4) mg/dl (1) Acute pancreatitis Acute pancreatitis complication: unspecified Pancreatitis type: unspecified pancreatitis type Qualified Code(s): K85.90 - Acute pancreatitis without necrosis or infection, unspecified
--- NOTE | 2021-03-04 15:52 | Discharge Summary ---
Date of Service March 04, 2021 Admission HPI Per Admitting Provider DATE OF ADMISSION: 03/02/2021. CHIEF COMPLAINT: Chest pain and now abdominal pain. HISTORY OF PRESENT ILLNESS: This is a 60-year-old female with past medical history significant for diabetes, currently not on any medications, history of fallopian tube malignant neoplasm, history of rosacea, history of neuropathy. Presents with abdominal pain and chest pain. The patient states since Monday night, she had some abdominal discomfort and since yesterday morning, has noticed having some pain in the lower part of the chest. Then, today it started radiating into the chest and is staying in the lower part of the chest and also feeling dizzy. She had this kind of pain before and at that time it was determined it was from her A port, but it was not getting better, it was 8/10 in severity, so she came to the ER and found to be having pancreatitis with elevated lipase and also CAT scan findings. Currently, with pain medications she is feeling better. She was nauseous, but no vomiting, no diarrhea. So mewhat constipated. No blood in stools or black stools, no hematuria, no burning micturitions. No fever, no chills, no cough. Sometimes she gets feeling of tightness in the chest with pain and no headache, no blurred visions, no earache, no runny nose, no sore throat, no dysphagia. Appetite has been not great the last few days. No swelling in the legs, no rash. Currently, resting comfortably and hemodynamically stable. ALLERGIES: PROCHLORPERAZINE, PROMETHAZINE, LORAZEPAM, METOCLOPRAMIDE, CODEINE, PHENOTHIAZINES, MEPERIDINE, PHOSPHORIC ACID. PAST MEDICAL HISTORY: As mentioned above. PAST SURGICAL HISTORY: , colonoscopy, dental surgery, foot and toe surgery, hysteroscopy, endometrial ablation, tunneled catheter venous access, robotic laparoscopic removal of tube and ovary, robotic laparoscopic hysterectomy, laparoscopic cholecystectomy, ligation of the oviducts, Pap smear, appendectomy, tonsillectomy, removal of excess tissue of the abdomen, umbilical hernia repair, laparoscopy of uterus. MEDICATIONS: The patient is on aspirin 81 mg p.o. daily, levothyroxine 150 mcg p.o. daily, lisinopril 2.5 mg p.o. at bedtime, multivitamin 1 tablet p.o. a.m. FAMILY HISTORY: Significant for father had prostate cancer, [place], hypertension; mother had breast cancer; maternal grandmother had breast cancer; sister has fallopian tube cancer; second cousin has ovarian cancer. SOCIAL HISTORY: , no smoking. Alcohol occasional. No drug use. REVIEW OF SYSTEMS: As per HPI. Rest of the review of systems is negative. Admission Exam Per Admitting Provider PHYSICAL EXAMINATION: GENERAL: The patient is of moderate build, not in acute distress. VITAL SIGNS: Temperature 37.2, pulse 63, respiratory rate 21, blood pressure 166/98, oxygen 99% on room air. HEENT: Pupils equal, round and reactive to light. Oral mucosa moist. NECK: No JVD, no neck masses. CARDIOVASCULAR: S1 and S2 heard. Regular rate and rhythm. No murmur, no gallop. RESPIRATORY: Normal AP diameter. No accessory muscle use. No wheezing, no crackles. ABDOMEN: Soft, bowel sounds present, nontender, no distention. CENTRAL NERVOUS SYSTEM: Cranial nerves II-XII grossly intact, nonfocal. EXTREMITIES: No edema, no erythema. Principal Diagnosis Acute pancreatitis Discharge Exam GENERAL: Alert and oriented x3. NAD, on RA. HEENT: No pallor, no icterus. Pupils equal, round and reactive to light. Oral mucosa moist. NECK: No JVD, no neck masses. HEART: S1 and S2 heard. Regular rate and rhythm. No murmur, no gallop. RESPIRATORY SYSTEM: Normal AP diameter. No accessory muscle use. No wheezing, no crackles. ABDOMEN: Soft, bowel sounds present, nontender, no distention. CENTRAL NERVOUS SYSTEM: Alert and oriented x3. No facial droop. Speech is clear. Obeys simple commands. Moves extremities. EXTREMITIES: No edema, no erythema seen. Discharge Data Allergies Allergy/AdvReac Type Severity Reaction Status Date / Time prochlorperazine Allergy Severe CAUSED Verified 03/02/21 19:49 CODE BLUE promethazine Allergy Severe MADE Verified 03/02/21 19:49 NAUSEA WORSE lorazepam Allergy Intermediate hallucinati Verified 03/02/21 19:49 ons metoclopramide Allergy Mild Unknown Verified 03/02/21 19:49 codeine Allergy Unknown Unknown Verified 03/02/21 19:49 Phenothiazines AdvReac Intermediate dystonic Verified 03/02/21 19:49 reaction meperidine AdvReac Mild GI SYMPTOMS Verified 03/02/21 19:49 Phosphoric Acid Allergy Unknown PHOSPHORATED Uncoded 03/02/21 19:49 CARBOHYDRATE Consultations 03/02/21 21:13 ED Decision to Admit Stat 03/03/21 08:00 Consult Gastroenterology Routine Ordered Studies 03/02/21 19:26 CT abd pelvis IV con only Stat CT angio chest PE protocol Stat Hospital Course (1) Acute pancreatitis: Patient was managed for the following while inpatient: #. Pancreatitis Labs and imaging 11 clinical findings suggestive of acute pancreatitis History of cholecystectomy Epigastric pain resolved, patient tolerated diet well, patient advised to follow-up with GI for possible EUS in 4 to 6-week. Follow-up with your primary care physician within 1 week time. #. Concern for chest pain: Initial EKG and troponin negative. Troponin trends negative. No chest pain at bedside. #. Hypothyroidism/DM: continue with sliding scale insulin, continue with# home Synthroid. Patient needs diabetic management revisitation after the acute process resolves, likely need metformin, patient to follow-up with PCP for the same. #. DVT prophylaxis: Lovenox while inpatient Total Time Total Time Spent Total Time Spent (In Minutes): 35 Discharge Plan Discharge Items Patient Disposition: Home - Self-Care Reason For Visit: CHEST PAIN Discharge Diagnosis: Acute pancreatitis Activity: Resume your previous activity Non-emergency contact: Primary Care Provider Call non-emergency contact if: you have any medication questions, your symptoms worsen, your pain is not controlled and your rectal temperature is above 100.4 Follow-up/Referrals: Joe Barclay DO [Primary Care Provider] - (Date & Time 03/08/2021 12:20 PM Provider Joe Barclay DO Department [facility] ) Diet: Low Fat Addtl Attending Provider Instructions: Please take medications as prescribed. Follow-up with your primary care physician within a week time. Your A1c while in hospital was 7.6, you will need adjustment in your diabetic management [likely start on Metformin after acute process is resolved]contact your primary care physician. Follow-up with your GI doctor as scheduled. Stick with a low-fat diet as per GI recommendationfor EUS in 4 to 6 weeks. Your lisinopril has been changed to amlodipine. Pending Studies at Discharge: No Stand-Alone Forms: My [facility] Medications and DC Order Prescriptions: New amlodipine [Norvasc] 5 mg Tablet 5 mg PO QAM Qty: 30 RF: 0 Continued multivitamin [Multiple Vitamins] Tablet 1 tab PO QAM RF: 0 aspirin [Aspirin Low Dose] 81 mg Tablet,Delayed Release (Dr/Ec) 81 mg PO WK RF: 0 levothyroxine 150 mcg tablet 150 mcg PO DAILYBB RF: 0 Discontinued lisinopril 2.5 mg tablet 2.5 mg PO HS RF: 0 Discharge Orders: Discharge Order (Routine); Ordered 03/04/21 Ordered By: Temo Caicedo/Other Patient Handouts: High Blood Sugar (Hyperglycemia), Hypoglycemia (Low Blood Sugar), Managing Type 2 Diabetes, Exercise: Why Fitness Matters, Diabetes: Meal Planning Admission Data Admit Date/Time: 03/02/21 22:18 Attending Provider: Temo Burnham Admit Provider: Ethan Wesley Primary Care Provider: Joe Barclay Other Providers: Ethan Wesley ; Trav Farooq Other Interventions: Discharge Summary Assessment (RN) Last Done: 03/04/21 11:58
== END 2021-03-04 13:04 | disposition home or self-care (01) ==
LOC: ED 17:44 → INTOOBSV 22:18 → SUATTDRO 22:18 → 2W 22:18
DX: E03.9 Hypothyroidism, unspecified; K85.90 Acute pancreatitis without necrosis or infection, unspecified; Z79.82 Long term (current) use of aspirin; Z79.890 Hormone replacement therapy; E11.9 Type 2 diabetes mellitus without complications; Z79.899 Other long term (current) drug therapy; Z88.8 Allergy status to other drugs, medicaments and biological substances; Z88.5 Allergy status to narcotic agent; R07.9 Chest pain, unspecified